=== PATIENT | female | born 1970 | race Caucasian/White ===

== ENCOUNTER → 2017-12-28 | Outpatient (CLI) | payer OTHER ==
[~2017-12-28] MED LIST: CYMBALTA30 MG PO; DURAGESIC50 MCG TD; FLEXERIL10 MG PO; HYDROCODON-ACE1 EACH PO; PLAQUENIL200 MG PO; TOPAMAX100 MG PO; TRAZODONE HCL50 MG PO; VIMOVO 500-201 EAC1 PO; ZITHROMAX Z-PA250 MG PO
== END | disposition home or self-care (01) ==
LOC: NUC 08:29
DX: K31.84 Gastroparesis (principal)
CPT/HCPCS: 78264; A9541